=== PATIENT | male | born 1970 | race Two or more races ===

== ENCOUNTER 2022-05-06 19:06 | Inpatient (IN) | payer OTHER ==
[~2022-05-06] VITALS: Ht 177.8 cm; Wt 91.6 kg
--- NOTE | 2022-05-06 19:20 | NUR ---
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 PT NOTED TO HAVE EPISODE OF INCONTINENCE -ORAL TRAUMA. 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 HX OF SEIZURE ON UNKNOWN MEDICATION BUT PT ENDORSES COMPLIENCE. PT AWAKE AND ALERT BREATHING UNLABORED, ANSWERS QUESTIONS VIA GESTURES AND FOLLOWS COMMANDS APPROPRIATELY. ENDORSES HEAD PAIN. PLACED ON GRAVE CLEANER AND V/S WNL. SEIZURE SAFETY PRECAUTIONS IN PLACE.
--- NOTE | 2022-05-06 19:22 | NUR ---
dr ramachandran at bedside for eval
--- NOTE | 2022-05-06 19:25 | NUR ---
18G AT [facility]. BLOOD COLLECTED AND SENT TO LAB
--- NOTE | 2022-05-06 19:50 | NUR ---
EMT AT BEDSIDE FOR EKG
--- NOTE | 2022-05-06 19:54 | NUR ---
POC BG 99
--- NOTE | 2022-05-06 20:03 | NUR ---
PATIENT TAKEN TO CT VIA ALEJANDRO
[2022-05-06 20:32] LABS: EOSINOPHILS % (AUTO) 0.1 % (0.0-6.0); HEMATOCRIT 50 % (39-51); HEMOGLOBIN 16.8 g/dL (13.5-17.5); LYMPHOCYTES # (AUTO) 0.4 K/uL (0.8-4.8); LYMPHOCYTES % (AUTO) 2.4 % (20.0-44.0); MEAN CORPUSCULAR HGB CONC 34 g/dl (31.0-36.0); MEAN CORPUSCULAR VOLUME 93 fL (80-96); MONOCYTES # (AUTO) 0.6 K/uL (0.1-1.30); MONOCYTES % (AUTO) 4.2 % (2.0-12.0); NEUTROPHILS # (AUTO) 14.2 K/uL (1.8-8.9); NEUTROPHILS % (AUTO) 93.3 % (43.0-81.0); PLATELET COUNT (AUTO) 259 K/uL (150-450); RED BLOOD CELL COUNT(AUTO) 5.35 MIL/uL (4.5-6.0); WHITE BLOOD COUNT (AUTO) 15.2 K/uL (4.3-11.0)
[2022-05-06] MEDS ORDERED: MORPHINE SULFATE INJ 4 MG/ML DISP.SYRIN ONE (20:42)
[2022-05-06 20:45] LABS: CALCIUM, SERUM 9.4 mg/dL (8.5-10.1); CARBON DIOXIDE 26 mmol/L (21-32); CHLORIDE 102 mmol/L (98-107); CREATININE 1.1 mg/dL (0.6-1.3); GLUCOSE 103 mg/dL (74-106); POTASSIUM 3.6 mmol/L (3.5-5.1); SODIUM SERUM 140 mmol/L (136-145); UREA NITROGEN, BLOOD 18 mg/dL (7-18)
--- NOTE | 2022-05-06 20:46 | NUR ---
PT STILL UNABLE TO PROVIDE URINE SAMPLE. URINAL PROVIDED AT BEDSIDE.
[2022-05-06 20:50] LABS: ALANINE AMINOTRANSFERASE 56 U/L (12-78); ALBUMIN 3.9 g/dL (3.4-5.0); ALCOHOL, BLOOD < 3 mg/dL (0-0); ALKALINE PHOSPHATASE 111 U/L (46-116); ASPARTATE AMINOTRANSFERASE 37 U/L (15-37); BILIRUBIN,DIRECT 0.2 mg/dL (0.0-0.2); BILIRUBIN,TOTAL 0.7 mg/dL (0.2-1.0); TOTAL PROTEIN, SERUM 7.4 g/dL (6.4-8.2)
--- NOTE | 2022-05-06 20:58 | NUR ---
URINE COLLECTED AND SENT TO LAB
[2022-05-06] MEDS ORDERED: MORPHINE SULFATE INJ 10 MG/ML DISP.SYRIN IV ONE (21:00)
[2022-05-06 22:23] LABS: BILIRUBIN,URINE MODERATE (NEGATIVE); COLOR,URINE DARK YELLOW (YELLOW); LEUKOCYTE ESTERASE ,URINE NEGATIVE (NEGATIVE); NITRITE, URINE NEGATIVE (NEGATIVE); PROTEIN,URINE 30 mg/dl (NEGATIVE); UGLUCOSE NEGATIVE (NEGATIVE)
[2022-05-06 22:27] LABS: BACTERIA,URINE Rare /HPF (None Seen); CALCIUM OXALATE CRYSTALS,UR Moderate /HPF (None Seen); HYALINE CASTS, URINE Few /LPF (None Seen); RBC,URINE 0-2 /HPF (0-2); SQUAMOUS EPITHELIAL CELL,UR Few /HPF (None Seen); WBC,URINE 0-2 /HPF (0-3)
[2022-05-06] MEDS ORDERED: ACETAMINOPHEN ES 500 MG TABLET ONE (23:24)
[2022-05-06] MEDS ORDERED: ACETAMINOPHEN ES 500 MG TABLET PO ONE (23:30)
[2022-05-07] MEDS ORDERED: IV NS 0.9% 1,000 ML IV ONE
[2022-05-07 00:06] LABS: PHENYTOIN (DILANTIN) 1.1 ug/ml (10.0-20.0)
[2022-05-07] MEDS ORDERED: LEVETIRACETAM (500MG) 1,000 MG in IV NS 0.9% 100 ML IV SCH (00:30)
[2022-05-07] MEDS ORDERED: MAGNESIUM HYDROXIDE 30 ML UDC PO PRN (00:30)
[2022-05-07] MEDS ORDERED: ONDANSETRON HCL/PF 4 MG/2 ML VIAL IVP PRN (00:30)
[2022-05-07] MEDS ORDERED: ACETAMINOPHEN 325 MG TABLET PO PRN (00:30)
[2022-05-07] MEDS ORDERED: MAG HYDROX/AL HYDROX/SIMETH 30 ML UDC PO PRN (00:30)
[2022-05-07] MEDS ORDERED: ZOLPIDEM TARTRATE 5 MG TABLET PO PRN (00:30)
[2022-05-07] MEDS ORDERED: Z GUARD REMEDY 4 OZ OINT TP PRN (00:30)
[2022-05-07 00:41] LABS: CARBAMAZEPINE (TEGRETOL) 0.1 ug/ml (4-11.9); PHENYTOIN (DILANTIN) 0.9 ug/ml (10.0-20.0)
[2022-05-07] MEDS ORDERED: IV NS 0.9% 1,000 ML IV PRN (01:00)
[2022-05-07] MEDS ORDERED: LORAZEPAM INJ 2 MG/ML VIAL IV PRN (01:00)
--- NOTE | 2022-05-07 01:19 | NUR ---
COVID SWAB SENT TO LAB
--- NOTE | 2022-05-07 02:04 | NUR ---
CALLED FOR REPORT. RN WILL CALL BACK.
--- NOTE | 2022-05-07 02:24 | NUR ---
CALLED FOR REPORT. RN NOT AVAILABLE.
--- NOTE | 2022-05-07 02:36 | NUR ---
REPORT GIVEN TO DEBI ARZATE
--- NOTE | 2022-05-07 02:42 | NUR ---
RN NOTE RECEIVED REPORT FROM INSURANCE TERRITORY MANAGERDEBI ELLINGTON
--- NOTE | 2022-05-07 02:50 | NUR ---
PT TRANSPORTED TO ROOM 113-1 ON CARDIAC PER ACLS IN STABLE CONDITION
[2022-05-07] MEDS ORDERED: LEVETIRACETAM (500MG) 500 MG/5 ML VIAL IV ONE ×3 (03:16→04:20)
--- NOTE | 2022-05-07 03:27 | NUR ---
RN INITIAL NOTE PT ARRIVED TO UNIT VIA GURNEY, BUT IS ABLE TO AMBULATE FROM GURNEY TO BED WITH STEADY GAIT. PT REPORTS OF BEING VACCINATED WITH 2 DOSES; UNABLE TO REMEMBER BRAND OF VACCINE. NO FLU/PNEUMONIA VACCINE. PT ENDORSES OF SMOKING CIGARETTES 1 PACK/DAY AND DRINKS ALCOHOL; PER PT REPORT HE DOESN'T DRINK MUCH ALCOHOL". PT ALSO DENIES OF USING RECREATIONAL DRUGS. PT IS A&O X3; APPEARS RESTLESS, BUT IS OVERALL COOPERATIVE. PT ATTACHED TO EXTERNAL MONITOR SR WITH HR 94. SKIN ASSESSED AND IS OVERALL INTACT. IV ACCESS ON LAC 18G, INTACT AND PATENT, FLUSHES EASILY WITH NO RESISTANCE. NS STARTED AND IS INFUSING AT 75 ML/HR. BED IN LOWEST POSITION, CALL LIGHT WITHIN REACH, SIDE RAILS UP X2 AND IS PADDED. WILL INITIATE PLAN OF CARE.
[2022-05-07] MEDS ORDERED: HYDROCODONE/APAP 5/325MG TABLET PO PRN (03:30)
--- NOTE | 2022-05-07 03:32 | NUR ---
RN NOTE PT REPORTS OF A 10/10 HEADACHE. OBTAINED ORDER FROM MELLY VELAZQUEZ FOR HYDROCODONE 5-325 MG 1 TAB. ORDER CARRIED OUT. PT ADMINISTERED NORCO 1 TAB. WILL MONITOR FOR EFFECTIVENESS.
[2022-05-07 04:00] VITALS: BP 141/57
[2022-05-07] MEDS: LEVETIRACETAM (500MG) 1,000 MG in IV NS 0.9% 100 ML IV SCH ×2 (04:20→12:51)
--- NOTE | 2022-05-07 04:55 | NUR ---
RN NOTE SPOKE TO PT'S NOEMI . UPDATED ABOUT PT'S STATUS. CURRENTLY IN [place] AND DOES NOT KNOW THE FRIEND PT CURRENTLY STAYS WITH; ONLY KNOWS THAT THE TWO HAVE KNOWN EACH OTHER SINCE THEY WERE 18 YRS OLD.
--- NOTE | 2022-05-07 06:37 | NUR ---
RN NOTE PT REPORTS OF 10/10 HEADACHE. EXPLAINED TO PT NORCO CAN ONLY BE GIVEN Q6H AND LAST TIME WAS GIVEN AT 0332 AND CAN BE GIVEN NEXT IN 3 MORE HRS. PT REQUESTS FOR TYLENOL. PT ADMINISTERED TYLENOL 650 MG.
--- NOTE | 2022-05-07 06:49 | NUR ---
NUCLEAR MEDICAL TECH CLOSING NOTE PT REMAINS IN BED, AWAKE, A&O X4, MORE CALM COMPARED TO WHEN PT ARRIVED TO UNIT. CONTINUES TO BE ON RA WITH O2SAT STABLE AT 97%; NO S/S OF RESP DISTRESS, NO SOB OR COUGH, NON-LABORED AND EQUAL BREATHING. PT ATTACHED TO EXTERNAL MONITOR, SR WITH HR RANGING FROM 85-97. LAC 18G INTACT AND PATENT, FLUSHES EASILY WITH NO RESISTANCE, NS INFUSING AT 75 ML/HR. ALL DUE MEDS ADMINISTERED DURING THE NIGHT. BED IN LOWEST POSITION, CALL LIGHT WITHIN REACH, SIDE RAILS UP X2. WILL ENDORSE TO DAYSHIFT NURSE TO CONTINUE CARE.
--- NOTE | 2022-05-07 07:33 | NUR ---
EMERGENCY DETAIL DRIVER OPENING NOTES: RECEIVED PATENT IN BED, AWAKE, ALERT, ORIENTED X 3. NO RESPIRATORY DISTRESS NOTED. ON RA WITH OXYGEN SATURATION OF 99%. HAS IV ACCESS ON LEFT ANTECUBITAL ARE RUNNING WITH NS @ 75 ML/HR,, IV SITE PATENT,NO S/S INFILTRATION NOTED. ON SR ON TELE MONITOR WITH HR OF 96 ON TELE MONITOR. PATIENT WITH NO C/O PAIN OR DISCOMFORT AT THIS TIME. BED LOCKED AND IN LOWEST POSITION. KATTY LIGHT WITHIN REACH. ALL SAFETY MEASURES IN PLACE. WILL CONTINUE TO MONITOR PATIENT THROUGHOUT SHIFT.
[2022-05-07 08:00] VITALS: BP 156/90
[2022-05-07] MEDS ORDERED: CARBAMAZEPINE 200 MG TABLET PO ONE (09:00)
[2022-05-07] MEDS ORDERED: CLOB20TA3 PO (09:31)
[2022-05-07] MEDS ORDERED: TEST200V3 IM (09:31)
[2022-05-07] MEDS ORDERED: LORA-259 PO (09:31)
[2022-05-07] MEDS ORDERED: AMPH20TA3 PO (09:31)
[2022-05-07] MEDS ORDERED: ONDA4TAB5 PO (09:31)
[2022-05-07] MEDS ORDERED: LEVO75TA7 PO (09:31)
[2022-05-07] MEDS ORDERED: ARIP5TAB10 PO (09:31)
[2022-05-07] MEDS ORDERED: VENL75CA62 PO (09:31)
[2022-05-07] MEDS ORDERED: CARB400T PO (09:31)
[2022-05-07] MEDS ORDERED: ZONI100C31 PO (09:32)
--- NOTE | 2022-05-07 12:05 | NUR ---
JOHANNY MENTIONED THAT HE WANTED TO GO HOME. CONTACTED DOCTOR JOCELYN CRISTOBAL AND STATED THAT THE PATIENT CANNOT BE DISCHARGED YET AND NEEDS TO RECHECK HIS LABS. EXPLAINED TO THE PATIENT THE IMPORTANCE OF HIM STAYING HERE FOR NOW BUT IS ADAMANT IN LEAVING.
--- NOTE | 2022-05-07 12:30 | NUR ---
SPOKE WITH NOEMI AND FRIEND AND INFORMED THEM OF THE SITUATION.
[2022-05-07] MEDS ORDERED: Medication Not On Formulary EA (Ondansetron Hcl (Zofran) 8 MG) PO PRN (13:00)
[2022-05-07] MEDS ORDERED: LORAZEPAM 1 MG TABLET PO PRN (13:00)
--- NOTE | 2022-05-07 15:06 | NUR ---
FRIEND CASSANDRA CAME BY AND PATIENT DECIDED TO LEAVE THE FACILITY. EXPLAINED TO THE PATIENT THE IMPORTANCE OF HIM STAYING AT THE HOSPITAL AND EXPLAINED THE RISKS AND BENEFITS BUT PATIENT STILL INSISTED ON LEAVING. PATIENT AGREED TO SIGN AMA AND PATIENT SIGNED THE FORM WITHOUT COERCION. ALSO READ THE AMA FORM BACK TO PATIENT AND AGREED AND UNDERSTOOD. IV LINE DISCONNECTED WITH HUB INTACT, TELE MONITOR WAS TAKEN OFF WELL THE PATIENT'S ID BAND. PATIENT LEFT IN NO APPARENT DISTRESS. PATIENT WAS TAKEN TO THE LOBBY VIA WHEELCHAIR
[2022-05-07] MEDS ORDERED: CARBAMAZEPINE XR 400 MG TAB.SR.12H PO SCH (21:00)
[2022-05-07] MEDS ORDERED: ZONISAMIDE 100 MG CAPSULE PO SCH (21:00)
[2022-05-07] MEDS ORDERED: CLOBAZAM 20 MG PO SCH (22:00)
[2022-05-08] MEDS ORDERED: LEVOTHYROXINE SODIUM 75 MCG TABLET PO SCH (07:30)
[2022-05-08] MEDS ORDERED: ARIPIPRAZOLE 5 MG TABLET PO SCH (09:00)
[2022-05-08] MEDS ORDERED: VENLAFAXINE XR 75 MG CAP.SR.24H PO SCH (09:00)
== END 2022-05-07 15:00 | disposition left against medical advice (07) | DRG 100 ==
LOC: ER 19:08 → TELE1 05-07 01:53
PROVIDERS: ADMIT Nurse Practitioner Acute Care; ATTEND Nurse Practitioner Acute Care
DX: G40.909 Epilepsy, unspecified, not intractable, without status epilepticus (principal); G92.8 Other toxic encephalopathy; Z20.822 Contact with and (suspected) exposure to COVID-19; Z91.199 Patient's noncompliance with other medical treatment and regimen due to unspecified reason; Z98.2 Presence of cerebrospinal fluid drainage device; Z87.820 Personal history of traumatic brain injury; E03.9 Hypothyroidism, unspecified; Z79.899 Other long term (current) drug therapy; D72.829 Elevated white blood cell count, unspecified; F19.90 Other psychoactive substance use, unspecified, uncomplicated; F39 Unspecified mood [affective] disorder; F17.210 Nicotine dependence, cigarettes, uncomplicated
CPT/HCPCS: 36415; 70450-TC; 71045-TC; 80048-TC; 80076-TC; 80156-TC; 80164-TC; 80177; 80185-TC; 81001; 82962-TC; 85025-TC; 87081-TC; G0378; G0480; J1953; J2270; J7030